=== PATIENT | female | born 1995 | race Asian ===

== ENCOUNTER 2024-11-22 22:04 | Emergency (ER) | payer OTHER, SELFPAY ==
--- NOTE | ~2024-11-22 | XR_ITS ---
EXAMINATION: XR abdomen/kub 1V DATE: 11/23/2024 00:22 INDICATION: Constipation. TECHNIQUE: A supine view of the abdomen on 2 radiographs was obtained. COMPARISON: None. FINDINGS: There are no dilated loops of bowel. There is a moderate volume of stool in the colon. A st aple overlies the right abdomen. IMPRESSION: 1. Nonobstructive bowel gas pattern. Reviewed, dictated and finalized at location A. [facility]
[2024-11-22 22:09] VITALS: BP 111/76; PULSE 99; RESP 16; TEMP 36.4; O2SAT 99
[2024-11-23] VITALS: BP 117/80; PULSE 91; RESP 18; O2SAT 98
--- NOTE | 2024-11-23 00:44 | ED.ABDPAIN ---
HPI - Abdominal Pain General Chief Complaint: Abdominal Pain Stated Complaint: CONSTIPATION Time Seen by Provider: 11/22/24 23:54 History of Present Illness HPI narrative: Patient is a 29-year-old female who presents emergency department this evening complaining of constipation for the past 5 days. Patient states that she normally goes almost daily and has not had any issues with constipation in the. Denies any family history of inflammatory bowel disease. Denies any abdominal pain, dysuria or hematuria. Patient states that she has been drinking water and feels that she has been staying hydrated. Denies any recent use of any new medications that could have precipitated the constipation. No additional symptoms or concerns at this time. Related Data Allergies Allergy/AdvReac Type Severity Reaction Status Date / Time No Known Allergies Allergy Verified 11/22/24 22:13 Review of Systems Review of Systems: All systems are reviewed and are negative unless stated otherwise in the HPI. Exam Narrative: General: Alert, awake, afebrile, in no acute distress. HEENT: PERRL, no rhinorrhea, no post nasal drip, oropharynx clear. Neck: Trachea midline, no JVD, no lymphadenopathy. Cardiovascular: Regular rate and rhythm, no murmurs, rubs or gallops, no peripheral edema. Respiratory: Clear to auscultation bilaterally, no tachypnea, no wheezing, no rhonchi, no rubs, no respiratory distress. Abdomen: Soft, nontender, nondistended, no rebound, no guarding, no peritoneal signs. Musculoskeletal: No joint swelling or deformity, normal muscle tone. Skin: No rashes or petechia, no signs of infection. Psychiatric: Alert and oriented, normal behavior and judgment for situation. Neurological: Alert and oriented to person, place, and time. Follows all commands. No focal deficits, speech is clear and fluent. Course Vital Signs Vital signs: Vital Signs Temperature 97.6 F 11/22/24 22:09 Pulse Rate 99 11/22/24 22:09 Respiratory Rate 16 11/22/24 22:09 Blood Pressure 111/76 11/22/24 22:09 Pulse Oximetry 99 11/22/24 22:09 Oxygen Delivery Room Air 11/22/24 22:09 Temperature 97.6 F 11/22/24 22:09 Pulse Rate 99 11/22/24 22:09 Respiratory Rate 16 11/22/24 22:09 Blood Pressure 111/76 11/22/24 22:09 Pulse Oximetry 99 11/22/24 22:09 Oxygen Delivery Room Air 11/22/24 22:09 MDM - Abdominal Pain MDM Narrative Medical decision making narrative: The patient was evaluated by myself in the emergency department. History is obtained from patient who is an independent historian and physical exam was performed. External medical records were reviewed at this time. Urinalysis was obtained at this time and was unremarkable. Imaging studies obtained included KUB which was independently interpreted by me revealing stool noted within the distal colon, which is pending final radiology interpretation. Differential diagnosis considerations include constipation, dehydration, urinary tract infection. Comorbidities impacting this visit include none. I have evaluated and discussed social determinants of health with the patient that could potentially impact subsequent diagnosis and treatment plans. On repeat assessment of the patient, reevaluation revealed that the patient is doing well and is in no acute distress. Patient symptoms have remained stable since she arrived to our emergency department. Repeat vital signs were all reviewed and noted to be stable. Differential diagnosis and treatment plan were discussed with the patient at bedside. Patient agrees with discussion and after shared medical decision making agrees with discharge. All questions were answered to the patient's satisfaction. Patient will follow up with her PCP in 3-5 days. Script for Colace and milk of magnesium were sent to patient's pharmacy to use in addition to the MiraLax and patient is agreeable with this plan. Patient was provided with strict return precautions and instructed to return to the emergency department if any new or worsening symptoms develop. The patient was discharged in stable condition. Lab Data Labs: Lab Results 11/23/24 Range/Units 01:00 Urine Color Yellow (Yellow) Urine Appearance Clear (Clear) Urine pH 7.5 (5.0-9.0) Ur Specific Randolph 1.007 (1.001-1.035) Urine Protein Negative (Negative) mg/dL Urine Glucose (UA) Negative (Negative) mg/dL Urine Ketones Negative (Negative) mg/dL Ur Blood (Man) Negative (Negative) Urine Nitrate Negative (Negative) Urine Bilirubin Negative (Negative) Urine Urobilinogen 0.2 (<2.0) mg/dL Leukocyte Esterase Rfl Negative (Negative) STEVEN/UL Discharge Plan Discharge Clinical Impression: Constipation Patient Disposition: Home, Self-Care Condition: Stable Instructions: Antibiotic Form, Constipation (DC) Additional Instructions: You were instructed to use the MiraLax 17 g every hour for up to 5 hour until you have a bowel movement. In addition to this you were prescribed a stool softener to take twice a day until you start having regular bowel movements. If these do not help then used the milk of magnesium 15 mL twice a day until you have a bowel movement. Follow-up with your family doctor within the next 3-5 days and return to the emergency department if any new or worsening symptoms develop. Patient Language: Monegasque Prescriptions: New docusate sodium [Colace] 100 mg capsule 100 mg PO BID Qty: 14 0RF magnesium hydroxide [Milk of Magnesia] 400 mg/5 mL suspension 15 ml PO BID PRN (Reason: constipation) Qty: 355 0RF Follow-up/Referrals: Dylan Recio MD [Physician] - 3 Days UNKNOWN,DOCTOR [Primary Care Provider] - 3 Days Time of Disposition: 00:47
[2024-11-23 01:08] LABS: Add Urine Microscopic? NO; Appearance Urine Clear (Clear); Bilirubin Urine Negative (Negative); Blood Urine Negative (Negative); Color Urine Yellow (Yellow); Glucose Urine UA Negative (Negative); Ketones Urine Negative (Negative); Leukocyte Esterase Ur Negative LEU/UL (Negative); Nitrate Urine Negative (Negative); Protein Urine Negative (Negative); Specific Grav Ur 1.007 (1.001-1.035); Urobilinogen Urine 0.2 mg/dL (<2.0); pH Urine 7.5 (5.0-9.0)
[2024-11-23 01:54] VITALS: BP 115/83; PULSE 83; RESP 19; O2SAT 100
== END 2024-11-23 01:56 | disposition home or self-care (01) ==
PROVIDERS: Emergency Provider Emergency Medicine
DX: K59.00 Constipation, unspecified (principal)
CPT/HCPCS: 74018; 81003; 99283